=== PATIENT | female | born 2000 | race Caucasian/White ===

== ENCOUNTER 2024-07-28 04:55 | Emergency (ER) | payer OTHER, SELFPAY ==
[2024-07-28] VITALS (35 sets, daily range): BP systolic 101–124; BP diastolic 58–103; PULSE 79–126; RESP 10–18; TEMP 36.8–36.9; O2SAT 95–100
--- NOTE | 2024-07-28 05:01 | ED.ARRPALP ---
HPI - Arrhythmia/Palpitations General Chief Complaint: Alcohol Stated Complaint: anxiety Time Seen by Provider: 07/28/24 05:01 Source: patient Mode of arrival: EMS Limitations: no limitations History of Present Illness HPI narrative: 84-year-old female with a history of anxiety, SVT not on any medication, alcoholism ( drank for 2 years and went to rehab 3 months ago. She was sober and she relapsed 2 days ago and has been drinking a large amount.) Patient has had some cocaine and has been smoking marijuana off and on for the past 2 days. She quit drinking yesterday following which she developed -- palpitation -- dizziness -- anxiety -- headache -- nausea she took gabapentin and hydroxyzine without much benefit. she called EMS and presented to the ED with the above symptoms. No fever or chills No chest pain or shortness of breath has nausea without any vomiting, diarrhea abdominal pain MD complaint: palpitations Onset (ago): hour(s) ( 7 hours) Duration: now resolved Severity: moderate Context: occurred during rest Arrhythmia history: SVT Associated symptoms: nausea and anxiety Related Data Home Medications Medication Instructions Recorded Confirmed gabapentin BID 07/28/24 hydroxyzine HCl 25 mg tablet 25 mg PO TID PRN Anxiety 07/28/24 07/28/24 Allergies Allergy/AdvReac Type Severity Reaction Status Date / Time No Known Allergies Allergy Verified 07/28/24 05:11 Review of Systems Review of Systems: All systems reviewed & are unremarkable except as noted in HPI and below Constitutional: Constitutional: Reports as per HPI and Reports no additional constitutional complaints Eyes: Eyes: Reports as per HPI and Reports no additional eye complaints ENT: Reports system reviewed and no additional complaints, except as documented and Reports as per HPI Cardiovascular: Cardiovascular: Reports as per HPI and Reports no additional cardiovascular complaints Respiratory: Respiratory: Reports as per HPI and Reports no additional respiratory complaints Gastrointestinal: Gastrointestinal: Reports as per HPI, Reports no additional gastrointestinal complaints and Reports nausea Genitourinary: Genitourinary: Reports no additional female genitourinary complaints and Reports as per HPI Musculoskeletal: Musculoskeletal: Reports no additional musculoskeletal complaints and Reports as per HPI Integumentary/Breasts: Skin/Breast: Reports system reviewed and no additional complaints, except as docu and Reports as per HPI Neurologic: Reports system reviewed and no additional complaints, except as documented and Reports as per HPI Psychiatric: Psychiatric: Reports no additional psychiatric complaints, Reports as per HPI and Reports anxiety Comments: past history of depression Endocrine: Endocrine: Reports no additional endocrine complaints and Reports as per HPI Hematologic/Lymphatic: Hematologic/Lymphatic: Reports no additional hematologic/lymphatic complaints and Reports as per HPI Allergic/Immunologic: Allergic/Immunologic: Reports no additional allergic/immunologic complaints and Reports as per HPI PMFSH Past Medical History Medical History (Updated 07/28/24 @ 06:58 by Aram Camacho MD) SVT (supraventricular tachycardia) Social History Social History (Updated 07/28/24 @ 05:26 by Aram Camacho MD) Social History: history of alcoholism Exam Narrative: blood pressure 121/103. Const: General: no acute distress Nutritional Appearance: well nourished Orientation/consciousness: patient oriented x3 Limitations: no limitations HENMT: Head: normal to inspection Ears: external ears normal Face/Nose/Sinus: Normal external nose present Face and sinus: normal facial exam Mouth: Yes Normal oral and palatal mucosa present Throat: posterior oropharynx normal Eyes: Conjunctivae: conjunctivae normal Pupils: Equal, round and reactive pupils present EOM: EOMs intact bilaterally Direct Ophth
--- NOTE | 2024-07-28 05:05 | ECG_ITS ---
Test Date: 2024-07-28 05:03:29 Measurements Intervals [place] Rate: 80 P: -2 RI: 118 QRS: 62 QRSD: 82 T: -10 QT: 367 QTc: 426 Interpretive Statements SINUS RHYTHM WITH SHORT RI INTERVAL NONSPECIFIC T WAVE ABNORMALITY No previous ECG available for comparison Electronically Signed On 07-28-2024 09:36:41 CDT by Edmar Garcia M.D.
[2024-07-28] MEDS: LACTATED RINGERS 1,000 ML 999 ML IV CONT (05:23)
[2024-07-28] MEDS: KETOROLAC 30 MG/ML VIAL (*BKC) IV PUSH (05:24)
[2024-07-28] MEDS: PROCHLORPERAZINE EDISYLATE 10 MG/2 ML VIAL IV PUSH (05:25)
[2024-07-28 05:46] LABS: Basophils Absolute Auto 0.05 K/mm3 (0.00-0.10); Basophils Percent Auto 0.7 % (0.0-1.0); Eosinophils Absolute Auto 0.07 K/mm3 (0.02-0.50); Hematocrit 36.5 % (35.0-49.0); Hemoglobin 11.6 g/dL (12.0-15.0); Immature Granulocyte Absolute 0.01 K/mm3 (0.00-0.00); Immature Granulocyte Percent A 0.1 % (0.0-0.0); Lymphocytes Absolute Auto 1.32 K/mm3 (1.10-4.50); Lymphocytes Percent Auto 19.6 % (18.0-42.0); Mean Corpuscular HGB Conc 31.8 g/dL (32-36); Mean Corpuscular Hemoglobin 25.4 pg (27.0-31.0); Mean Corpuscular Volume 79.9 fL (78.0-102.0); Mean Platelet Volume 9.5 fl (9.2-11.8); Monocytes Absolute Auto 0.68 K/mm3 (0.10-0.90); Monocytes Percent Auto 10.1 % (2.0-11.0); Neutrophils Absolute Auto 4.59 K/mm3 (1.70-7.20); Neutrophils Percent Auto 68.5 % (50.0-70.0); Platelet Count Result 441 K/mm3 (150-420); Red Blood Count 4.57 M/mm3 (4.20-5.40); Red Cell Distribution Width 16.7 % (11.6-14.4); White Blood Count 6.7 K/mm3 (4.8-10.8)
[2024-07-28 05:55] LABS: Lactic Acid Reflex 2.1 mmol/L (0.4-2.0)
[2024-07-28 06:01] LABS: Alanine Aminotransferase 31 U/L (14-59); Albumin Level 3.2 g/dL (3.4-5.0); Alkaline Phosphatase 122 U/L (46-116); Anion Gap 10 mmol/L (4-12); Aspartate Amino Transferase 36 U/L (15-37); Bilirubin,Total 0.6 mg/dL (0.00-1.00); Blood Urea Nitrogen 7 mg/dL (7-18); Calcium 8.8 mg/dL (8.5-10.1); Carbon Dioxide 30 mmol/L (21-32); Chloride 101 mmol/L (98-108); Estimated CRCL calculation 111 ml/min; Estimated Glomerular Filt Rate > 60; Glucose 92 mg/dL (70-99); Lipase 26 U/L (16-77); Osmolality Calculated 290 mOsm/kg (285-295); Potassium 3.1 mmol/L (3.5-5.1); Sodium 141 mmol/L (136-145)
[2024-07-28 06:03] LABS: Troponin I < 4.0 ng/L (0.00-60.4)
[2024-07-28 06:45] LABS: Add Urine Microscopic? NO; Appearance Urine Clear (Clear); Bilirubin Urine Negative (Negative); Blood Urine Negative (Negative); Color Urine Light Yellow (Yellow); Glucose Urine UA Negative (Negative); Ketones Urine 1+ (Negative); Leukocyte Esterase Ur Negative LEU/UL (Negative); Nitrate Urine Negative (Negative); Protein Urine Negative (Negative); Specific Grav Ur 1.015 (1.010-1.020); Urobilinogen Urine 0.2 mg/dL (0.2-1.0)
[2024-07-28 06:46] LABS: Pregnancy On Board Control Positive; Urine Pregnancy Test Negative
[2024-07-28] MEDS: THIAMINE HCL 200 MG/2 ML VIAL 100 MG IV PUSH (06:47)
[2024-07-28] MEDS: LORazepam INJ (*CRX) 2 MG/ML VIAL IV PUSH (06:47)
--- NOTE | 2024-07-28 07:09 | PC.NURSE ---
REPORT TO AMADOU GILBERT. PT SLEEPING AT THIS TIME, SINUS TACHY ON MONITOR.
--- NOTE | 2024-07-28 07:15 | PC.NURSE ---
Patient up for discharge, ERP states let patient sleep for a few hours due to medications.
--- NOTE | 2024-07-28 08:30 | PC.NURSE ---
RN went in an woke up patient she has no needs at this time. still very sleepy, going to let patient rest a while longer, will continue to monitor.
[2024-07-28 08:34] LABS: Reflex Lactic Acid Yes or No Add Lactic
--- NOTE | 2024-07-28 09:47 | PC.NURSE ---
Patient is awake at this time. Texting friends to get a ride home.
--- NOTE | 2024-07-28 10:02 | PC.NURSE ---
Patient awake and alert, feels much better at this time. PAtient stable on her feet with steady gait. ERP updated on patients status, states she is safe for discharge, patient has friend on their way to pick her up now.
== END 2024-07-28 10:05 | disposition home or self-care (01) ==
PROVIDERS: Emergency Provider Internal Medicine Critical Care Medicine
DX: F41.9 Anxiety disorder, unspecified (principal); F10.930 Alcohol use, unspecified with withdrawal, uncomplicated; Z79.899 Other long term (current) drug therapy
CPT/HCPCS: 36415; 80053; 81003; 81025; 83605; 83690; 84484; 85025; 93005; 96361; 96374; 96375; 99284; J0780; J1885; J2060; J3411; J7120